=== PATIENT | female | born 1990 | race American Indian/Alaskan Native ===

== ENCOUNTER 2017-04-11 07:00 | Inpatient (IN) | payer OTHER ==
[2017-04-11] MEDS ORDERED: LACTATED RINGERS 1,000 ML IV ONE (07:22)
[2017-04-11] MEDS ORDERED: STADOL IV ONE (10:42)
[2017-04-11] MEDS ORDERED: XYLOCAINE 2% INFILTRATI ONE (11:03)
[2017-04-11] MEDS ORDERED: BRETHINE SUB-Q PRN (11:03)
[2017-04-11] MEDS ORDERED: ZOFRAN IV PRN (11:03)
[2017-04-11] MEDS ORDERED: BRETHINE IVP PRN (11:03)
[2017-04-11] MEDS ORDERED: MINERAL OIL PO PRN (11:03)
[2017-04-11] MEDS ORDERED: NUBAIN IV PRN (11:03)
[2017-04-11] MEDS ORDERED: POLYCILLIN/NS 2 GM/100 ML 2 GM/100 ML BAG IV ONE ×2 (11:03→11:05)
[2017-04-11] MEDS ORDERED: ePHEDrine SULFATE IV PRN (11:03)
--- NOTE | 2017-04-11 11:23 | History and Physical Report ---
History of Present Illness Date of admission: 04/11/17 10:18 Past History - Obstetrical History : 4 Medications and Allergies Allergies Allergy/AdvReac Type Severity Reaction Status Date / Time No Known Allergies Allergy Unverified 04/11/17 07:03 Active Meds: Active Medications Butorphanol Tartrate (Stadol) 2 mg IV Q1H ONE Stop: 04/11/17 10:43 Ephedrine Sulfate (Ephedrine Sulfate) 10 mg IV Q2M PRN PRN Reason: Hypotension Stop: 04/11/17 11:08 Ampicillin Sodium (Polycillin/Ns 1 Gm/50 Ml) 1 gm in 50 mls @ 100 mls/hr IV Q4HR TAM PRN Reason: Protocol Ampicillin Sodium (Polycillin/Ns 2 Gm/100 Ml) 2 gm in 100 mls @ 100 mls/hr IV ONCE ONE PRN Reason: Protocol Stop: 04/11/17 12:02 Lactated Ringer's (Lactated Ringers) 1,000 mls @ 125 mls/hr IV DIRECT TAM Oxytocin/Sodium Chloride (Pitocin/Ns 20 Unit/1000ml Drip) 20 units in 1,000 mls @ 125 mls/hr IV DIRECT TAM Oxytocin/Sodium Chloride (Pitocin/Ns 30 Unit/500ml) 30 units in 500 mls @ 1 mls /hr IV TITR TAM; 1 MILLIUNITS/MIN PRN Reason: Protocol Oxytocin/Sodium Chloride (Pitocin/Ns 30 Unit/500ml) 30 units in 500 mls @ 2 mls /hr IV TITR TAM PRN Reason: Protocol Lidocaine (Xylocaine 2%) 20 ml INFILTRATI ONCE ONE Stop: 04/11/17 11:04 Mineral Oil (Mineral Oil) 30 ml PO QHS PRN PRN Reason: Constipation Nalbuphine HCl (Nubain) 10 mg IV Q2H PRN PRN Reason: Pain, Moderate (4-6) Ondansetron HCl (Zofran) 4 mg IV Q8H PRN PRN Reason: Nausea And Vomiting Terbutaline Sulfate (Brethine) 0.25 mg SUB-Q ONCE PRN PRN Reason: Hyperstimulation/Hypertonicity Stop: 04/11/17 11:04 Terbutaline Sulfate (Brethine) 0.25 mg IVP ONCE PRN PRN Reason: Hyperstimulation/Hypertonicity Stop: 04/11/17 11:04 - Vital Signs Vital signs: Vital Signs Temp Pulse Resp BP 97.9 F 114 H 20 124/65 04/11/17 07:15 04/11/17 07:15 04/11/17 07:15 04/11/17 07:15 Temp Pulse Resp BP Pulse Ox 97.9 F 101 H 20 104/56 97 04/11/17 07:15 04/11/17 10:48 04/11/17 07:15 04/11/17 10:48 04/11/17 10:14 Results All other labs normal.
[2017-04-11 11:27] LABS: Hematocrit 31.6 % (30.3-42.9); Hemoglobin 10.2 gm/dl (10.1-14.3); Mean Corpuscular HGB Conc 32 % (30-34); Mean Corpuscular Hemoglobin 25 pg (28-32); Mean Corpuscular Volume 78 fl (79-97); Platelet Count 104 K/mm3 (140-440); Red Blood Count 4.06 M/mm3 (3.65-5.03); Red Cell Distribution Width 15.9 % (13.2-15.2); White Blood Count 14.1 K/mm3 (4.5-11.0)
[2017-04-11] MEDS ORDERED: PITOCin/NS 20 UNIT/1000ML DRIP 20 UNITS/1,000 ML BAG IV SCH (12:00)
[2017-04-11] MEDS ORDERED: LACTATED RINGERS 1,000 ML IV SCH (12:00)
[2017-04-11] MEDS ORDERED: PITOCin/NS 30 UNIT/500ML 30 UNITS/500 ML BAG IV SCH ×2 (12:00)
--- NOTE | 2017-04-11 12:17 | History and Physical Report ---
History of Present Illness Date of examination: 04/11/17 Date of admission: 04/11/17 10:18 Chief complaint: Intense CTX pains and my water has been leaking since yesterday History of present illness: Late Transfer of Care at 35 Weeks from [place]. course complicated by labor concerns, received Betamethasome series at [place] about 2 Weeks ago. Past History Past Medical History: no pertinent history Past Surgical History: no surgical history Family/Genetic History: diabetes (Mother, Sister, Father, MGF, MGM, PGM), hypertension (MGM, PGM), stroke (MGM) Social history: single - Obstetrical History Expected Date of Delivery: 05/14/17 Actual Gestation: 35 Week(s) 2 Day(s) : 4 Para: 3 Number of Living Children: 3 #1 Gender: Male year: 2,[birth year] Birthweight: 3.969 kg Method of Delivery: Vaginal Gestational age at delivery: 39 Complications: none #2 Infant Gender: Female year: 2,[birth year] Birthweight: 3.175 kg Method of Delivery: Vaginal Gestational age at delivery: 40 #3 Infant Gender: Female year: 2,016 Birthweight: 3.175 kg Method of Delivery: Vaginal Gestational age at delivery: 40 Complications: none Medications and Allergies Allergies Allergy/AdvReac Type Severity Reaction Status Date / Time No Known Allergies Allergy Unverified 04/11/17 07:03 Active Meds: Active Medications Ampicillin Sodium (Polycillin/Ns 1 Gm/50 Ml) 1 gm in 50 mls @ 100 mls/hr IV Q4HR TAM PRN Reason: Protocol Lactated Ringer's (Lactated Ringers) 1,000 mls @ 125 mls/hr IV DIRECT TAM Oxytocin/Sodium Chloride (Pitocin/Ns 20 Unit/1000ml Drip) 20 units in 1,000 mls @ 125 mls/hr IV DIRECT TAM Oxytocin/Sodium Chloride (Pitocin/Ns 30 Unit/500ml) 30 units in 500 mls @ 1 mls /hr IV TITR TAM; 1 MILLIUNITS/MIN PRN Reason: Protocol Oxytocin/Sodium Chloride (Pitocin/Ns 30 Unit/500ml) 30 units in 500 mls @ 2 mls /hr IV TITR TAM PRN Reason: Protocol Mineral Oil (Mineral Oil) 30 ml PO QHS PRN PRN Reason: Constipation Nalbuphine HCl (Nubain) 10 mg IV Q2H PRN PRN Reason: Pain, Moderate (4-6) Ondansetron HCl (Zofran) 4 mg IV Q8H PRN PRN Reason: Nausea And Vomiting Review of Systems All systems: negative - Vital Signs Vital signs: Vital Signs Temp Pulse Resp BP 97.9 F 114 H 20 124/65 04/11/17 07:15 04/11/17 07:15 04/11/17 07:15 04/11/17 07:15 Temp Pulse Resp BP Pulse Ox 97.9 F 101 H 20 104/56 97 04/11/17 07:15 04/11/17 10:48 04/11/17 07:15 04/11/17 10:48 04/11/17 10:14 - Physical Exam Breasts: Positive: normal Cardiovascular: Regular rate Lungs: Positive: Clear to auscultation, Normal air movement Abdomen: Positive: normal appearance, soft, normal bowel sounds Genitourinary (Female): Positive: normal external genitalia, normal perenium Vagina: Positive: normal moisture Anus/Rectum: Positive: normal perianal skin, heme negative Extremities: Positive: normal - Obstetrical FHR: category 1 Uterine Contraction Monitor Mode: External Cervical Dilatation: 5 (Copiuos amount of foul smelling meconium fluids) Cervical Effacement Percentage: 70 station: -2 Uterine Contraction Pattern: Regular Uterine Tone Measurement Phase: Contraction Uterine Contraction Intensity: Moderate Results Result Diagrams: 04/11/17 07:30 Abnormal lab results 04/11/17 Range/Units 07:30 WBC 14.1 H (4.5-11.0) K/mm3 MCV 78 L (79-97) fl MCH 25 L (28-32) pg RDW 15.9 H (13.2-15.2) % Plt Count 104 L (140-440) K/mm3 All other labs normal. Assessment and Plan A: IUP @ 35 2/7 Weeks SROM Active Labor Category I Tracing GBS Unknown Foul-Smelling Meconium Stained Fluids P: Admit to L&D per routine orders GBS Prophylaxis
--- NOTE | 2017-04-11 12:31 | Procedure Note ---
OB Delivery Note - Delivery Date of Delivery: 04/11/17 (1204) Surgeon: PARADISE RIDDLE Estimated blood loss: 200cc - Vaginal Delivery presentation: vertex Delivery position: OA Intrapartum events: labor-<37 weeks, meconium, foul smelling fluid Delivery induction: none Delivery monitor: external FHT, external uterine Route of delivery: Delivery placenta: spontaneous Delivery cord: 3 umbilical vessels Episiotomy: none Delivery laceration: none Anesthesia: none Delivery comments: of a live 5'8 male infant over a intact perinuem under IV pain control with Apgars of 8 and 9 at 1204 on 04/11/2017. Cord clamped and cut by AGUSTINA Riddle, not stimulated and handed directly to awaiting NICU/RESP team due to foul-smelling meconium fluids. Spontaneous delivery of placenta complete and intact with Falcon side presenting at 1206. Fundus is firm and midline located 4 below the U. Lochia is scant. GBS prophylaxis x 1. Placenta to pathology. - A at 1 minute: 8 at 5 minutes: 9 Infant Gender: Male (5'8")
[2017-04-11] MEDS ORDERED: TUCKS PAD TP PRN (13:00)
[2017-04-11] MEDS ORDERED: LANSINOH TP PRN (13:00)
[2017-04-11] MEDS ORDERED: SODIUM CHLORIDE FLUSH SYRINGE 10 ML IV PRN (13:00)
[2017-04-11] MEDS ORDERED: BENADRYL PO PRN (13:00)
[2017-04-11] MEDS ORDERED: PHENERGAN PR PRN (13:00)
[2017-04-11] MEDS: MOTRIN PO SCH ×2 (13:07→18:12)
[2017-04-11] MEDS ORDERED: TYLENOL PO ONE (14:15)
[2017-04-11] MEDS ORDERED: POLYCILLIN/NS 1 GM/50 ML 1 GM/50 ML BAG IV SCH (15:05)
[2017-04-11] MEDS: CLEOCIN 900 MG/50 mL 900 MG/50 ML BAG IV SCH ×2 (15:09→21:11)
[2017-04-11] MEDS: NORCO 5/325 PO PRN (15:15)
[2017-04-11] MEDS: COLACE PO SCH (21:11)
[2017-04-11] MEDS ORDERED: MILK OF MAGNESIA PO PRN (22:00)
[2017-04-11] MEDS ORDERED: DULCOLAX PR PRN (22:00)
[2017-04-12 02:10] LABS: Hematocrit 28.8 % (30.3-42.9); Hemoglobin 9.2 gm/dl (10.1-14.3)
[2017-04-12] MEDS: MOTRIN PO SCH ×3 (02:42→18:29)
[2017-04-12] MEDS: NORCO 5/325 PO PRN (02:42)
[2017-04-12] MEDS: CLEOCIN 900 MG/50 mL 900 MG/50 ML BAG IV SCH (06:00)
--- NOTE | 2017-04-12 10:17 | Progress Note ---
Assessment and Plan A: PPD #1 - stable P: Discharge home in am Subjective - Subjective Date of service: 04/12/17 Principal diagnosis: Patient reports: appetite normal [place]: doing well Objective - Vital Signs Latest vital signs: Vital Signs Temp Pulse Resp BP BP Pulse Ox 04/12/17 08:10 98.0 F 73 19 90/47 04/12/17 00:00 98.5 F 87 98/52 04/11/17 20:05 98.0 F 75 104/50 04/11/17 16:55 98.7 F 76 18 100/50 04/11/17 14:45 99.1 F 108 H 18 106/49 04/11/17 14:37 18 106/49 04/11/17 13:50 103 H 95 04/11/17 13:46 107 H 139/60 04/11/17 13:45 117 H 98 04/11/17 13:44 122 H 146/67 04/11/17 13:43 78 L 04/11/17 13:40 143 H 94 04/11/17 13:38 139 H 94 04/11/17 13:35 159 H 97 04/11/17 13:31 153 H 176/97 04/11/17 13:30 147 H 96 04/11/17 13:16 100 H 113/73 04/11/17 13:07 20 04/11/17 13:01 85 109/67 04/11/17 12:47 97 H 109/75 04/11/17 12:32 96 H 115/82 04/11/17 10:48 101 H 104/56 Intake and Output 04/11/17 04/12/17 04/12/17 22:59 06:59 14:59 Intake Total 340 120 120 Output Total 1400 400 Balance -1060 -280 120 Intake: IV 100 CLEOCIN 900 MG/50 mL 900 100 mg In 50 ml @ 100 mls/hr IV Q8HR [facility] Rx#:[id number] Oral 240 120 120 Output: Urine 1400 400 Void 1400 400 Other: Total, Intake Amount 240 120 120 Total, Output Amount 600 400 - Exam Breasts: Present: deferred Cardiovascular: Present: Regular rate Lungs: Present: Clear to auscultation Abdomen: Present: soft Vulva: both: normal Uterus: Present: fundal height below umbilicus Extremities: Present: normal Deep Tendon Reflex Grade: Normal +2 - Labs Labs: Abnormal lab results 04/11/17 04/12/17 Range/Units 07:30 01:34 WBC 14.1 H (4.5-11.0) K/mm3 Hgb 9.2 L (10.1-14.3) gm/dl Hct 28.8 L (30.3-42.9) % MCV 78 L (79-97) fl MCH 25 L (28-32) pg RDW 15.9 H (13.2-15.2) % Plt Count 104 L (140-440) K/mm3
--- NOTE | 2017-04-12 10:19 | Discharge Summary ---
Providers - Providers Date of Admission: 04/11/17 10:18 Date of discharge: 04/13/17 Attending physician: WINSTON DIAZ MD Primary care physician: WINSTON DIAZ MD Hospitalization Reason for admission: active labor Delivery: Episiotomy: none Laceration: none Other procedures: none complications: none Discharge diagnosis: delivery baby: male Condition at discharge: Good Disposition: DC-01 TO HOME OR SELFCARE Plan - Provider Discharge Summary Activity: routine, no sex for 6 weeks, no strenuous exercise Diet: routine Instructions: routine Additional instructions: [] Smoking cessation referral if applicable(refer to patient education folder for contact #) [] Refer to [facility] Booklet Call your doctor immediately for: * Fever > 100.5 * Heavy vaginal bleeding ( >1 pad per hour) * Severe persistent headache * Shortness of breath * Reddened, hot, painful area to leg or breast * Drainage or odor from incision. * Keep incision clean and dry at all times and follow doctor's instructions regarding bathing/showering - Follow up plan Follow up: [facility] [Provider Group] - 6 Weeks
[2017-04-12] MEDS: COLACE PO SCH (10:24)
[2017-04-12] MEDS: PRENATAL VITAMIN PO SCH (10:24)
[2017-04-13] MEDS: MOTRIN PO SCH ×3 (00:31→11:44)
[2017-04-13] MEDS: COLACE PO SCH ×2 (00:31→10:06)
[2017-04-13 09:32] VITALS: BP 94/58
[2017-04-13] MEDS: PRENATAL VITAMIN PO SCH (10:07)
== END 2017-04-13 14:00 | disposition home or self-care (01) | DRG 775 ==
LOC: TRG 07:00 → LD 10:18 → OB 14:43
PROVIDERS: ADMIT Obstetrics & Gynecology; ATTEND Obstetrics & Gynecology
PROC: 10E0XZZ Delivery of Products of Conception, External Approach (ICD-10-PCS; principal; 2017-04-11)
DX: O60.14X0 Preterm labor third trimester with preterm delivery third trimester, not applicable or unspecified (principal); O77.0 Labor and delivery complicated by meconium in amniotic fluid; Z3A.35 35 weeks gestation of pregnancy; Z37.0 Single live birth; Z83.3 Family history of diabetes mellitus; Z82.49 Family history of ischemic heart disease and other diseases of the circulatory system; Z82.3 Family history of stroke
CPT/HCPCS: 36415; 85014; 85018; 85027; 86850; 86900; 86901; 88307; 99211; A6250; G0463; J0290; J0595; J2590; J7120